=== PATIENT | male | born 1980 | race Caucasian/White ===

== ENCOUNTER 2023-03-26 13:42 | Emergency (ER) | payer MEDICAID, SELFPAY ==
[2023-03-26 14:01] VITALS: BP 122/68; PULSE 75; RESP 12; TEMP 36.8; O2SAT 96; BMI 29.8
--- NOTE | 2023-03-26 14:06 | XRR_ITS ---
PROCEDURE INFORMATION: Exam: XR Left Shoulder Exam date and time: 03/26/2023 2:12 PM Age: 43 years old Clinical indication: Pain; Shoulder; Left TECHNIQUE: Imaging protocol: Radiologic exam of the left shoulder. Views: 2 or more views. COMPARISON: CT chest abdpel w/*[id number] 10/15/2016 1:29 PM FINDINGS: Bones/joints: Normal. Soft tissues: Normal. XR/XR shoulder LT min 2V* [id number] IMPRESSION: No acute findings.
--- NOTE | 2023-03-26 14:09 | ED_ITS ---
HPI - Back Pain/Injury General: Chief Complaint: Back Pain/Injury Stated Complaint: Neck and shoulder pain Time Seen by Provider: 03/26/23 13:47 Source: patient Mode of arrival: ambulatory Limitations: no limitations History of Present Illness: 43-year-old male states has been having left-sided neck pain for the last month. Patient states pain is sharp in nature along the left trapezius muscle he st ates he feels like he has a hard time looking the left is painful he also has pain with palpation he has pain with left arm movement denies any known injuries he has been on Flexeril he states minimal improvement. Associated symptoms: Deny abdominal pain, chills, fever(s), nausea or vomiting Review of Systems Const: Denies: fever(s) or chills ENMT: Denies: throat pain or dental pain Card: Denies: chest pain Resp: Denies: dyspnea GI: Denies: abdominal pain, nausea, vomiting or diarrhea Musc: Reports: neck pain; Denies: back pain Skin/Breast: Denies: rash Neuro: Denies: headache(s) Physical Exam Const: COMMON NORMALS: no acute distress and patient oriented x3 HENMT: COMMON NORMALS: normocephalic and atraumatic HEAD & SCALP: normocephalic and atraumatic Eye: COMMON NORMALS: conjunctivae normal CONJUNCTIVA: Yes conjunctivae normal Neck/C-Spine: OTHER: Tenderness along left trapezius muscle he does have pain when looking to the left pain with left arm movement no midline tenderness Chest: COMMONS NORMALS: normal inspection of the chest Resp: COMMON NORMALS: normal respiratory effort Cardio: COMMON NORMALS: regular rate and regular rhythm RATE: regular rate RHYTHM: regular rhythm GI: COMMON NORMALS: Normal to inspection, nondistended, normoactive bowel s ounds present and Soft to palpation PALPATION: Yes Soft to palpation Extremity: COMMON NORMALS: normal to inspection Neuro: COMMON NORMALS: patient oriented x3 Psych: COMMON NORMALS: mental status grossly normal Skin: COMMON NORMALS: no rashes or lesions noted GENERAL SKIN EXAM: no rashes or lesions noted Course Vital Signs: Vital signs: Vital Signs Temperature 98.3 F 03/26/23 14:01 Pulse Rate 75 03/26/23 14:01 Respiratory Rate 12 03/26/23 14:01 Blood Pressure 122/68 03/26/23 14:01 Pulse Oximetry 96 03/26/23 14:01 Oxygen Delivery Me thod Room Air 03/26/23 14:01 MDM - Back Pain/Injury Medical Decision Making Patient presents here with neck pain likely muscle strain he has no midline pain x-rays normal we will place him on Naprosyn and Robaxin he is to follow-up his PCP and return if worsening he understands agrees to plan. Discharge Plan Discharge Patient Disposition: Home Clinical Impression: Neck pain on left side Condition: Stable Prescriptions: New methocarbamol 750 mg tablet 750 mg PO Q6H PRN (Reason: spasms) Qty: 20 0RF Naprosyn 500 mg tablet 500 mg PO BID PRN (Reason: pain) Qty: 20 0RF Discharge Orders: Discharge ED (Routine); Ordered 03/26/23 Ordered By: Yumiko Khoury Discharge Diet: Advance as tolerated Discharge Activity: Resume usual activity Patient Instructions: Cervical Strain (ED) Coding Level of Care Code ED Machine [employer] App[employer]ice for Lynette York
[2023-03-26] MEDS: ketorolac 60 mg/2 mL INJ IM (14:42)
== END 2023-03-26 14:45 | disposition home or self-care (01) ==
PROVIDERS: Emergency Provider Emergency Medicine
DX: M54.2 Cervicalgia (principal)
CPT/HCPCS: 73030; 96372; 99284; J1885